=== PATIENT | female | born 1970 | race Caucasian/White ===

== ENCOUNTER 2021-10-03 08:40 | Day surgery (SDC) | payer BC ==
[2021-09-29 08:48] VITALS: BMI 30.4
[~2021-10-03 08:40] MED LIST: LACTATED RINGERS 1,000 ML IV SCH
[2021-10-03] MEDS ORDERED: LACTATED RINGERS 1,000 ML IV ONE (09:08)
[2021-10-03 09:11] VITALS: TEMP 98
[2021-10-03 09:24] VITALS: RESP 18
[2021-10-03] MEDS ORDERED: PROPOFOL 10 MG/ML 20 ML VIAL IV ONE (10:01)
--- NOTE | 2021-10-03 10:06 | P.GSHP ---
History of Present Illness H&P Date: 10/03/21 Chief Complaint: Colon cancer screening Patient here today for colonoscopy. She has not had 1 previously. Personal history of lymphoma. No family history of colon cancer. Past Medical History Past Medical History: Cancer Additional Past Medical History / Comment(s): non hodgkin's lymphoma-mult doses of chemo last dose 2018 History of Any Multi-Drug Resistant Organisms: None Reported Past Surgical History: Appendectomy, Hysterectomy, Tonsillectomy Additional Past Surgical History / Comment(s): D&C x2,dolores ovaries and dolores fallopian tubes removed 2 different surgeries Past Anesthesia/Blood Transfusion Reactions: No Reported Reaction Additional Past Anesthesia/Blood Transfusion Reaction / Comment(s): sensitive to pain meds,had bleeding wtih tonsillectomy at age 14 Smoking Status: Never smoker - Past Family History Brother(s) Additional Family Medical History / Comment(s): clotting disorder Medications and Allergies Home Medications Medication Instructions Recorded Confirmed Type Atorvastatin [Lipitor] 20 mg PO HS 09/29/21 09/29/21 History Fish Oil/Dha/Epa [Fish Oil 1,200 1 each PO DAILY 09/29/21 09/29/21 History mg Fish Oil] Levothyroxine Sodium [Synthroid] 100 mcg PO QAM 09/29/21 09/29/21 History Multivit with Calcium,Iron,Min 1 each PO DAILY 09/29/21 09/29/21 History [Women's Multivitamin] Ubidecarenone [Co Q-10] 200 mg PO HS 09/29/21 09/29/21 History lisinopriL [Zestril] 5 mg PO QAM 09/29/21 09/29/21 History Allergies Allergy/AdvReac Type Severity Reaction Status Date / Time No Known Allergies Allergy Verified 09/29/21 08:35 Surgical - Exam Vital Signs Temp 98.0 F 10/03/21 09:10 Physical exam: General: Well-developed, well-nourished HEENT: Normocephalic, sclerae nonicteric Abdomen: Nontender, nondistended Extremities: No edema Neuro: Alert and oriented Assessment and Plan (1) Colon cancer screening Narrative/Plan: Will proceed with colonoscopy Current Visit: Yes Status: Acute Code(s): Z12.11 - ENCOUNTER FOR SCREENING FOR MALIGNANT NEOPLASM OF COLON SNOMED Code(s): 578634333
--- NOTE | 2021-10-03 10:23 | P.PCN ---
Date of Procedure: 10/03/21 Procedure(s) Performed: PREOPERATIVE DIAGNOSIS: Colon cancer screening POSTOPERATIVE DIAGNOSIS: Mild diverticulosis PROCEDURE: Colonoscopy ANESTHESIA: MAC SURGEON: Yared Baker M.D. SPECIMENS: None ENDOSCOPIC PROCEDURE: The patient was placed on the endoscopy table in the left decubitus position. The Olympus colonoscope was inserted into the anus and passed under direct visualization to the base of the cecum. The appendiceal orifice was visualized. From that point the scope was slowly withdrawn inspecting all surfaces carefully. There were no neoplastic inflammatory or polypoid lesions throughout the cecum, ascending, transverse, descending, sigmoid and rectum. There was mild scattered diverticulosis noted. Digital rectal examination was normal. The patient was taken to the recovery room in stable condition per anesthesia guidelines. RECOMMENDATIONS: Resume diet. Follow-up colonoscopy 10 years.
[2021-10-03 10:44] VITALS: BP 110/63; PULSE 98
== END 2021-10-03 11:10 | disposition home or self-care (01) ==
LOC: ORWHC2ENDO 08:40
PROVIDERS: ATTEND Surgery
DX: Z12.11 Encounter for screening for malignant neoplasm of colon (principal); Z85.72 Personal history of non-Hodgkin lymphomas; Z90.49 Acquired absence of other specified parts of digestive tract; Z90.722 Acquired absence of ovaries, bilateral
CPT/HCPCS: 45378; J2704

== ENCOUNTER → 2023-10-08 | Outpatient (CLI) | payer BC ==
--- NOTE | 2023-10-09 08:31 | CA ---
Transthoracic Echo Report Name: Tiffany Decker Age: 53 Gender: F : 1970 Exam Date: 10/08/2023 17:41 Exam Location: [facility] Ht (in): 64 Wt (lb): 192 Ordering Physician: Sujit Gutierrez MD ([id number]) Attending/Referring Phys: Dandre May MD Parts Clerk [employer] Maintenance Abeba Wright RDCS Procedure CPT: Indications: R07.9 CHEST PAIN I10 HT I47.10 TACHYCARD Cardiac Hx: Technical Quality: Good Contrast 1: Total Dose (mL): Contrast 2: Total Dose (mL): MEASUREMENTS (Male / Female) Normal Values 2D ECHO LV Diastolic Diameter PLAX 4.6 cm 4.2 - 5.9 / 3.9 - 5.3 cm LV Systolic Diameter PLAX 2.4 cm IVS Diastolic Thickness 1.0 cm 0.6 - 1.0 / 0.6 - 0.9 cm LVPW Diastolic Thickness 1.0 cm 0.6 - 1.0 / 0.6 - 0.9 cm LV Relative Wall Thickness 0.4 RV Internal Dim ED PLAX 2.7 cm LA Systolic Diameter LX 3.2 cm 3.0 - 4.0 / 2.7 - 3.8 cm LV Diastolic Volume MOD 4C 71.4 cm??? LV Systolic Volume MOD 4C 38.8 cm??? LV Ejection Fraction MOD 4C 45.6 % LV Cardiac Index MOD 4C 1192.7 cm???/min???m??? LV Diastolic Length 4C 7.1 cm LV Systolic Length 4C 5.7 cm LV Diastolic Volume MOD 2C 60.3 cm??? LV Systolic Volume MOD 2C 28.1 cm??? LV Ejection Fraction MOD 2C 53.4 % LV Cardiac Index MOD 2C 1181.8 cm???/min???m??? LV Diastolic Length 2C 7.3 cm LV Systolic Length 2C 5.8 cm LA Volume 46.8 cm??? 18 - 58 / 22 - 52 cm??? LA Volume Index 23.2 cm???/m??? 16 - 28 cm???/m??? M-MODE Aortic Root Diameter MM 2.7 cm LA Systolic Diameter MM 0.9 cm LA Ao Ratio MM 0.3 MV E Point Septal Separation 0.5 cm AV Cusp Separation MM 1.9 cm DOPPLER AV Peak Velocity 144.8 cm/s AV Peak Gradient 8.4 mmHg MV Area PHT 2.3 cm??? Mitral E Point Velocity 56.2 cm/s Mitral A Point Velocity 64.8 cm/s Mitral E to A Ratio 0.9 MV Deceleration Time 323.5 ms FINDINGS Left Ventricle Left ventricular ejection fraction is estimated at 55-60 %. Left ventricular cavity size normal. Left ventricular wall thickness normal.normal left ventricular wall motion. Right Ventricle Normal right ventricular size. Unable to estimate the right ventricular systolic pressure. Right Atrium Normal right atrial size. Left Atrium Normal left atrial size. Mitral Valve Structurally normal mitral valve. No mitral stenosis, regurgitation or prolapse. Aortic Valve Trileaflet aortic valve. No aortic valve stenosis or regurgitation. Tricuspid Valve Structurally normal tricuspid valve. No tricuspid stenosis, regurgitation or prolapse. Pulmonic Valve Structurally normal pulmonic valve. No pulmonic regurgitation. Pericardium No pericardial effusion. Aorta Normal size aortic root and proximal ascending aorta. CONCLUSIONS 1. Normal left ventricle size and systolic function 2. No significant valvular abnormalities Previewed by: Dr. Piper Rutledge MD (Electronically Signed) Final Date: 09 October 2023 08:30
== END | disposition home or self-care (01) ==
LOC: RADECHMAIN 17:37
PROVIDERS: ATTEND Internal Medicine Clinical Cardiac Electrophysiology
DX: R07.9 Chest pain, unspecified (principal); I10 Essential (primary) hypertension; I47.10 Supraventricular tachycardia, unspecified
CPT/HCPCS: 93306

== ENCOUNTER → 2023-11-05 | Outpatient (CLI) | payer BC ==
--- NOTE | 2023-11-05 10:51 | CA ---
Exercise Stress Test Report Name: Tiffany Decker Exam Date: 11/05/2023 09:09 Exam Location: [facility] Ht (in): 64 Wt (lb): 191 BSA: 1.92 Ordering Phys: Adarsh Bear MD Referring Phys: ADARSH BEAR,, Technologist: Juan Alberto Vázquez Age: 53 Gender: F : 1970 Procedure CPT: Indications: Chest Pain ICD-10 Codes: Patient History: Medications: Meds past 24 hrs: Pretest Chest Pain: STRESS TEST Morgan Protocol Exercise Duration (min:sec): 07:[address] Depressions (mm): Angina Score: Chaparro Score: Resting HR (bpm): 76 Peak HR (bpm): 158 Resting BP (mmHg): 130 / 80 Peak BP (mmHg): 172 / 85 MPHR: 168 Target HR: 143 % MPHR: 94 METS: 10.1 Total Dose: Peak Dose: Atropine: Double Product: 39684 BP Response: Stress Termination: Reached target heart rate Stress Symptoms: Chest Heaviness, seeing spots. Got better Stress Summary: ECG ANALYSIS Resting ECG: Stress ECG: CONCLUSIONS Excellent exercise tolerance Normal electrocardiogram in response to exercise Dr. Anthony Curry MD (Electronically Signed) Final Date: 05 November 2023 10:50
== END | disposition home or self-care (01) ==
LOC: RADNMMAIN 08:33
PROVIDERS: ATTEND Internal Medicine Clinical Cardiac Electrophysiology
DX: R07.9 Chest pain, unspecified (principal)
CPT/HCPCS: 93017

== ENCOUNTER → 2024-04-23 | Outpatient (CLI) | payer BC ==
[2024-04-23 15:06] VITALS: BP 110/77; PULSE 64; RESP 16; TEMP 98.4
--- NOTE | 2024-04-23 15:21 | P.SLEEP ---
History of Present Illness DATE: 04/23/2024 CONSULTATION/NEW PATIENT EVALUATION HISTORY OF PRESENT ILLNESS/SLEEP-WAKE EVALUATION: 53-year-old lady had been e valuated in the sleep center for possible obstructive sleep apnea hypopnea syndrome. SLEEP SCHEDULE: Usually sleep schedule from 8:30 PM to 6:30 AM on weekdays and from 9:30 PM to 8:30 AM on weekend. FALLING ASLEEP: No problems with falling asleep, no TV in bedroom. DURING SLEEP: Patient usually sleeps on the side position with snoring and awakenings from sleep 3 times with nocturia positive history of twitching and movements of the body, grinding teeth and sweating. No history of hypnogogical hallucinations, sleep paralysis, or cataplexy. DURING THE DAY/WAKE STATE: In the morning patient wake up tired, falling asleep during the day, has problems with concentration. [place] sleepiness scale is significantly increased to 15. Patient may take up to 2 naps during the day. PAST MEDICAL HISTORY: Hypothyroidism, hyperlipidemia, non-Hodgkin's lymphoma. PAST SURGICAL HISTORY: Tonsillectomy. MEDICATIONS: Please see below. SOCIAL HISTORY: Please see below. FAMILY HISTORY: Please see below. REVIEW OF SYSTEMS: Multiple awakenings from sleep, sleepiness during the day. No fevers. No double vision. No recent chest pain. No shortness of breath. No abdominal pain. No bleeding episodes. No blood in urine. No seizure episodes. PHYSICAL EXAMINATION: GENERAL: A pleasant patient without any distress. VITAL SIGNS: Please see below, weight 201 pounds, BMI 35.6. HEENT: PERRLA, EOMI. Evaluation of oropharynx showed tongue protrudes midline, low position of soft palate Mallampati 4. NECK: Supple. No JVD. Thyroid is not palpable. 15 inches in circumference. LUNGS: Clear to percussion and to auscultation. Good air exchange. No wheezing or rhonchi. HEART: S1, S2 regular. No murmurs, gallops or rubs. ABDOMEN: Soft and nontender. Bowel sounds are present. No organomegaly ap preciated. EXTREMITIES: No clubbing or cyanosis. SHIPBOARD INTELLIGENCE ANALYST: Awake, alert, and oriented x3. Cranial nerves 2 to 7 intact. There is no fasciculation or atrophy noted. No focal deficits observed. ASSESSMENT: 1. Snoring, multiple awakenings from sleep, extremely low position of soft palate Mallampati 4, sleepiness during the day with [place] Sleepiness Scale 15. Obstructive sleep apnea hypopnea syndrome. 2. Significant amount of movements during the sleep and twitching, possibly periodic limb movements. 3. Hypothyroidism. 4. Hyperlipidemia. 5 hypertension with increasing diastolic blood pressure according to patient. 6 . History of non-Hodgkin's lymphoma treated by chemotherapy. 7. Status post tonsillectomy. 8. Mild obesity BMI 35.6. PLAN: 1. Polysomnography for evaluation of patient's breathing during sleep. 2. Following plan after reading sleep study. 3. Preferable position during sleep on the side. 4. No driving if patient feels any sleepiness. Patient is aware of civil and criminal liability for unsafe driving. 5. Sleep hygiene with regular sleep time for at least 7.5-8 hours. 6. Watching and losing weight. Thank you very much for referring this patient for consultation. Sincerely, Caden Hall MD, PhD, FAASM. Diplomat of [place] [employer], Sleep Medicine Board by [place] [employer] [place] [employer] [facility] Past Medical History Past Medical History: Cancer Additional Past Medical History / Comment(s): non hodgkin's lymphoma-mult doses of chemo last dose 2019 History of Any Multi-Drug Resistant Organisms: None Reported Past Surgical History: Appendectomy, Hysterectomy, Tonsillectomy Additional Past Surgical History / Comment(s): D&C x2,dolores ovaries and dolores fallopian tubes removed 2 different surgeries Past Anesthesia/Blood Transfusion Reactions: No Reported Reaction Additional Past Anesthesia/Blood Transfusion Reaction / Comment(s): sensitive to pain meds,had bleeding wtih tonsillectomy at age 14 Past Psychological History: No Psychological Hx Reported Smoking Status: Never smoker Past Alcohol Use History: Rare Past Drug Use History: None Reported - Past Family History Brother(s) Family Medical History: Coronary Artery Disease (CAD) Additional Family Medical History / Comment(s): clotting disorder Father Family Medical History: Coronary Artery Disease (CAD) Mother Family Medical History: Coronary Artery Disease (CAD) Medications and Allergies Home Medications Medication Instructions Recorded Confirmed Type Atorvastatin [Lipitor] 20 mg PO HS 09/29/21 09/29/21 History Fish Oil/Dha/Epa [Fish Oil 1,200 1 each PO DAILY 09/29/21 09/29/21 History mg Fish Oil] Levothyroxine Sodium [Synthroid] 100 mcg PO QAM 09/29/21 04/23/24 History Multivit with Calcium,Iron,Min 1 each PO DAILY 09/29/21 04/23/24 History [Women's Multivitamin] Ubidecarenone [Co Q-10] 200 mg PO HS 09/29/21 04/23/24 History lisinopriL [Zestril] 5 mg PO QAM 09/29/21 04/23/24 History Cholecalciferol [Vitamin D3 (25 25 mcg PO DAILY 04/23/24 04/23/24 History Mcg = 1000 Iu)] Rosuvastatin [Crestor] 20 mg PO DAILY 04/23/24 04/23/24 History Sennosides-Docusate Sodium 2 cap PO DAILY 04/23/24 04/23/24 History [Senokot-S] Allergies Allergy/AdvReac Type Severity Reaction Status Date / Time No Known Allergies Allergy Verified 09/29/21 08:35 Physical Exam Vitals: Vital Signs Temp Pulse Resp BP Pulse Ox 04/23/24 14:36 98.4 F 64 16 110/77 99 Intake and Output 04/23/24 04/23/24 04/23/24 06:59 14:59 22:59 Other: Weight 91.172 kg Sleep Note - Sleep Data ESS Total: 15 - Sleep Note Sleep Note: Temperature: 98.4 F Pulse Rate: 64 Respiratory Rate: 16 Blood Pressure: 110/77 SpO2: 99 Height: 5 ft 3 in Weight: 91.172 kg BMI: Neck Circumference: 15
== END ==
LOC: 3 N SLEEP 14:17
PROVIDERS: ATTEND Internal Medicine
DX: G47.33 Obstructive sleep apnea (adult) (pediatric) (principal); G47.10 Hypersomnia, unspecified; E03.9 Hypothyroidism, unspecified; E78.5 Hyperlipidemia, unspecified; I10 Essential (primary) hypertension; E66.9 Obesity, unspecified; Z68.35 Body mass index [BMI] 35.0-35.9, adult; Z98.890 Other specified postprocedural states; Z90.89 Acquired absence of other organs; Z85.72 Personal history of non-Hodgkin lymphomas; Z79.899 Other long term (current) drug therapy; Z79.890 Hormone replacement therapy
CPT/HCPCS: 99211

== ENCOUNTER → 2024-05-14 | Outpatient (CLI) | payer BC ==
--- NOTE | 2024-05-21 11:19 | P.PCN ---
Description of Procedure: CLINICAL: A home sleep apnea test has been done for confirmation of possible obstructive sleep apnea-hypopnea syndrome. DESCRIPTION OF PROCEDURE: RESULTS: Recording time was 9 hours 43 minutes. Evaluation time was 9 hours 32 minutes. Evaluation time is sufficient for making conclusion about results of the test. Raw data of sleep recording has been reviewed and is adequate. Respiratory channel showed 2 apneas and 62 hypopneas. Apnea-hypopnea index was 6.7 per hour. Pulse rate in the range between minimum 44, maximum 113, average 67 by computer calculation. Lowest desaturation was 84%. IMPRESSION: 1. Obstructive Sleep Apnea Hypopnea Syndrome in mild range. Patient presents with symptoms of excessive daytime sleepiness with [place] Sleepiness Scale 15. Please see other impressions from consultation. PLAN: 1. The patient will be started on auto-PAP treatment for correction of respiratory abnormallities during sleep. 2. I will see patient for follow up visit to discuss results of the test, evaluate clinical response on treatment with PAP therapy and make any necessary adjustments related to mask fitting, pressure, and humidification. 3. Watching and losing weight. 4. Sleep hygiene with regular time in bed for at least 8 hours. 5. No driving if feeling any sleepiness. 6. In case if treatment with CPAP will not normalize alertness, we may consider multiple sleep latency test. Thank you very much for allowing me to participate in the management of your patient. Sincerely, Caden Hall MD, PhD, FAASM Diplomat of [place] [employer] Sleep Medicine Board of [place] [employer] Veterinary Surgery Technologist [facility] [employer] cc: Dannielle Jaramillo MD
== END ==
LOC: 3 N SLEEP 17:02
PROVIDERS: ATTEND Internal Medicine
DX: G47.33 Obstructive sleep apnea (adult) (pediatric) (principal); G47.61 Periodic limb movement disorder